=== PATIENT | male | born 1985 | race Two or more races ===

== ENCOUNTER 2017-03-24 23:56 | Emergency (ER) | payer SELFPAY ==
[~2017-03-24] VITALS: Ht 172.7 cm; Wt 66.7 kg
[2017-03-25] VITALS: BP 133/91
== END 2017-03-25 00:56 | disposition home or self-care (01) ==
LOC: ER 23:59
DX: S86.912A Strain of unspecified muscle(s) and tendon(s) at lower leg level, left leg, initial encounter (principal); X58.XXXA Exposure to other specified factors, initial encounter; Y93.67 Activity, basketball; Y92.89 Other specified places as the place of occurrence of the external cause; Y99.9 Unspecified external cause status
CPT/HCPCS: A4606; Z7610